=== PATIENT | male | born 1985 | race African-American/Black ===

== ENCOUNTER 2018-11-08 12:28 | Emergency (ER) | payer MEDICAID ==
[~2018-11-08] VITALS: Ht 175.3 cm; Wt 112.0 kg
[2018-11-08] MEDS: LIDOCAINE HCL 1% 20ML VIAL (Pyxis) INJ INFIL ONE (13:19)
[2018-11-08] MEDS: KETOROLAC 60MG/2ML VIAL IM ONE (13:19)
[2018-11-08] MEDS: CEFTRIAXONE SODIUM 1 G/VIAL IM ONE (13:19)
[2018-11-08 13:35] VITALS: BP 113/70
== END 2018-11-08 13:44 | disposition home or self-care (01) ==
LOC: ER 12:28
DX: K04.7 Periapical abscess without sinus (principal); L03.211 Cellulitis of face; F12.10 Cannabis abuse, uncomplicated; F17.290 Nicotine dependence, other tobacco product, uncomplicated; Z98.890 Other specified postprocedural states
CPT/HCPCS: 96372; 99283; 99406; J0696; J1885; J3490

== ENCOUNTER 2024-03-27 18:10 | Emergency (ER) | payer MEDICAID, OTHER ==
[~2024-03-27] VITALS: Ht 177.8 cm; Wt 125.0 kg
[2024-03-27 18:13] VITALS: O2SAT 100
[2024-03-27] MEDS: SODIUM CHLORIDE 0.9% 1,000 ML IV ONE (19:05)
[2024-03-27 20:10] VITALS: TEMP 36.94740
[2024-03-28 01:24] VITALS: BP 124/69; PULSE 98; RESP 16; O2SAT 94
== END 2024-03-28 01:24 | disposition home or self-care (01) ==
LOC: ER 18:10
DX: R73.9 Hyperglycemia, unspecified (principal); G40.909 Epilepsy, unspecified, not intractable, without status epilepticus
CPT/HCPCS: 99285; 70450; 71045; 93005; J7030

== ENCOUNTER 2024-05-11 21:34 | Emergency (ER) | payer MEDICAID ==
[~2024-05-11] VITALS: Ht 172.7 cm; Wt 93.0 kg
[2024-05-11 21:38] VITALS: O2SAT 99
[2024-05-12 02:58] VITALS: BP 130/80; PULSE 95; RESP 18; TEMP 36.7; O2SAT 99
== END 2024-05-12 03:00 | disposition home or self-care (01) ==
LOC: ER 21:34
DX: R56.9 Unspecified convulsions (principal); Z98.890 Other specified postprocedural states
CPT/HCPCS: 99283

== ENCOUNTER 2024-05-17 17:58 | Emergency (ER) | payer MEDICAID ==
[~2024-05-17] VITALS: Ht 182.9 cm; Wt 114.0 kg
[2024-05-17 18:09] VITALS: TEMP 38.4; O2SAT 100
[2024-05-17] MEDS ORDERED: ACETAMINOPHEN 325MG TABLET PO ONE (18:15)
[2024-05-17] MEDS ORDERED: IBUPROFEN 400MG TABLET PO ONE (18:15)
[2024-05-17 20:23] LABS: BASOPHILS % 0.7 % (0.0-2.0); EOSINOPHILS % 0.9 % (0.0-5.0); HEMATOCRIT. 39.5 % (42.0-52.0); HEMOGLOBIN. 13.3 g/dL (14.0-18.0); LYMPHOCYTES % 24.6 % (20.0-50.0); MEAN CORPUSCULAR HGB CONC 33.7 g/dL (31.0-37.0); MEAN CORPUSCULAR VOLUME 94.9 fL (80.0-94.0); MEAN PLATELET VOLUME 7.9 fl (7.4-10.4); MONOCYTES % 13.9 % (2.0-8.0); NEUTROPHILS % 59.9 % (40.0-76.0); PLATELET 303 x1000/uL (130-400); RED BLOOD CELL COUNT 4.16 mill/uL (4.7-6.1); WHITE BLOOD COUNT 5.2 x1000/uL (4.5-11.0)
[2024-05-17 20:32] LABS: PROTHROMBIN TIME 11.6 sec (9.6-11.0)
[2024-05-17 20:39] LABS: CHLORIDE 110 mEq/L (98-107); SODIUM 142 mEq/L (136-145)
[2024-05-17 20:40] LABS: CARBON DIOXIDE 28 mEq/L (21-32)
[2024-05-17 20:45] LABS: CREATININE 0.9 mg/dL (0.6-1.3); GLUCOSE 119 mg/dL (70-105); UREA NITROGEN BLOOD 11 mg/dL (9-23)
[2024-05-17 20:47] LABS: ALANINE AMINOTRANSFERASE 12 IU/L (10-49); ALBUMIN 3.2 g/dL (3.2-4.8); ASPARTATE AMINOTRANSFERASE 10 IU/L (<34); BILIRUBIN TOTAL 0.2 mg/dL (0.1-1.0); ETHANOL BLOOD < 10 mg/dL (<10); PROTEIN TOTAL 5.5 g/dL (6.0-8.3)
[2024-05-17 20:48] LABS: BILIRUBIN DIRECT < 0.1 mg/dL (<=3.0)
[2024-05-17] MEDS: PHENYTOIN SODIUM 1,000 MG in SODIUM CHLORIDE 0.9% 100 ML IV ONE (21:18)
[2024-05-17] MEDS: IBUPROFEN 400MG TABLET PO NR (21:26)
[2024-05-17] MEDS: ACETAMINOPHEN 325MG TABLET PO NR (21:27)
[2024-05-17 22:46] LABS: CLARITY URINE CLEAR (CLEAR); COLOR URINE YELLOW (YELLOW); GLUCOSE URINE NEGATIVE (NEGATIVE); KETONES URINE NEGATIVE (NEGATIVE); LEUKOCYTE ESTERASE URINE NEGATIVE (NEGATIVE); NITRITE URINE NEGATIVE (NEGATIVE); OCCULT BLOOD URINE NEGATIVE (NEGATIVE); PROTEIN URINE NEGATIVE (NEGATIVE); UROBILINOGEN URINE 0.2 E.U./dL (0.2-1.0)
[2024-05-17 22:56] LABS: *AMPHETAMINES SCREEN URINE NEGATIVE (NEGATIVE); *BARBITURATES SCREEN URINE NEGATIVE (NEGATIVE); *BENZODIAZEPINES SCREEN URINE NEGATIVE (NEGATIVE); *COCAINE SCREEN URINE PRESUMPTIVE POSITIVE (NEGATIVE); CANNABINOID URINE SCREEN NEGATIVE (NEGATIVE); METHADONE URINE SCREEN NEGATIVE (NEGATIVE); OPIATES URINE SCREEN NEGATIVE (NEGATIVE); PHENCYCLIDINE URINE SCREEN NEGATIVE (NEGATIVE)
[2024-05-17 22:57] LABS: ECSTASY MDMA SCREEN URINE NEGATIVE (NEGATIVE)
[2024-05-17] MEDS ORDERED: PHEN100C4 MT (23:03)
[2024-05-17] MEDS ORDERED: AZIT250T12 MT (23:06)
[2024-05-18 00:01] VITALS: BP 95/50; PULSE 98; RESP 18; O2SAT 94
== END 2024-05-18 01:18 | disposition home or self-care (01) ==
LOC: ER 17:58
DX: J06.9 Acute upper respiratory infection, unspecified (principal); G40.909 Epilepsy, unspecified, not intractable, without status epilepticus; F14.10 Cocaine abuse, uncomplicated; R53.1 Weakness; Z59.00 Homelessness unspecified
CPT/HCPCS: 80076; 80305; 80048; 81003; 80320; 83605; 85025; 85610; 87040; 87086; 36415; 84145; 71045; 70450; 96365; 99285; J1165; J7050; Z7610 ×2; A4606; G0480

== ENCOUNTER 2024-11-03 12:52 | Emergency (ER) | payer MEDICAID ==
[~2024-11-03] VITALS: Ht 177.8 cm; Wt 100.0 kg
[~2024-11-03 12:52] MED LIST: AZIT250T12 MT; PHEN100C4 MT
[2024-11-03 12:58] VITALS: O2SAT 98
[2024-11-03] MEDS ORDERED: SODIUM CHLORIDE 0.9% 1,000 ML IV ONE (13:00)
[2024-11-03] MEDS ORDERED: LEVETIRACETAM 1000MG PREMIX 100 ML IV ONE (13:00)
[2024-11-03 13:21] LABS: BASOPHILS % 0.7 % (0.0-2.0); EOSINOPHILS % 3.5 % (0.0-5.0); HEMATOCRIT. 39.7 % (42.0-52.0); HEMOGLOBIN. 13.3 g/dL (14.0-18.0); LYMPHOCYTES % 39.7 % (20.0-50.0); MEAN PLATELET VOLUME 7.7 fl (7.4-10.4); MONOCYTES % 11.6 % (2.0-8.0); NEUTROPHILS % 44.5 % (40.0-76.0); PLATELET 309 x1000/uL (130-400); RED BLOOD CELL COUNT 4.25 mill/uL (4.7-6.1); RED CELL DISTRIBUTION WIDTH 14.6 % (11.6-14.6)
[2024-11-03 13:50] LABS: CREATININE 0.9 mg/dL (0.6-1.3); ETHANOL BLOOD < 10 mg/dL (<10); UREA NITROGEN BLOOD 12 mg/dL (9-23)
[2024-11-03 14:24] LABS: PHENYTOIN < 2.0 ug/mL (10-20)
[2024-11-03] MEDS ORDERED: KEPP500 MT (17:09)
[2024-11-03] MEDS ORDERED: LEVETIRACETAM 500MG TABLET PO ONE (17:15)
[2024-11-03 17:22] VITALS: BP 128/85; PULSE 76; RESP 16; TEMP 36.8; O2SAT 99
== END 2024-11-03 17:29 | disposition home or self-care (01) ==
LOC: ER 12:52
DX: G40.909 Epilepsy, unspecified, not intractable, without status epilepticus (principal); Z79.899 Other long term (current) drug therapy
CPT/HCPCS: 80048; 80320; 80185; 85025; 36415; 93005; 99284; J7030; G0480

== ENCOUNTER 2024-12-20 21:33 | Emergency (ER) | payer MEDICAID ==
[~2024-12-20] VITALS: Ht 175.3 cm; Wt 96.0 kg
[~2024-12-20 21:33] MED LIST changes: +KEPP500 MT
[2024-12-20 21:35] VITALS: PULSE 89; RESP 18; O2SAT 98
[2024-12-20 21:37] VITALS: BP 127/74; TEMP 36.7; O2SAT 100
== END 2024-12-20 22:09 | disposition left against medical advice (07) ==
LOC: ER 21:33
DX: R06.02 Shortness of breath (principal); Z59.00 Homelessness unspecified; Z53.29 Procedure and treatment not carried out because of patient's decision for other reasons; Z79.899 Other long term (current) drug therapy
CPT/HCPCS: 71045; 93005; 99283

== ENCOUNTER 2024-12-20 23:09 | Emergency (ER) | payer MEDICAID ==
[~2024-12-20] VITALS: Ht 172.7 cm; Wt 90.0 kg
[2024-12-20 23:13] VITALS: BP 134/78; TEMP 36.7; O2SAT 98
[2024-12-20 23:24] VITALS: PULSE 70; RESP 18; O2SAT 99
[2024-12-20] MEDS ORDERED: IBUPROFEN 600MG TABLET PO ONE (23:30)
== END 2024-12-20 23:52 | disposition left against medical advice (07) ==
LOC: ER 23:09
DX: R07.2 Precordial pain (principal); Z59.00 Homelessness unspecified
CPT/HCPCS: 93005; 99283

== ENCOUNTER 2025-01-28 13:32 | Emergency (ER) | payer MEDICAID ==
[~2025-01-28] VITALS: Ht 172.7 cm; Wt 91.0 kg
[2025-01-28 13:36] VITALS: TEMP 36.6; O2SAT 99
[2025-01-28 16:25] VITALS: BP 111/78; PULSE 69; RESP 16; O2SAT 100
== END 2025-01-28 16:43 | disposition home or self-care (01) ==
LOC: ER 13:32
DX: S43.402A Unspecified sprain of left shoulder joint, initial encounter (principal); W10.9XXA Fall (on) (from) unspecified stairs and steps, initial encounter; Y93.89 Activity, other specified; Y92.89 Other specified places as the place of occurrence of the external cause; Y99.8 Other external cause status
CPT/HCPCS: 73030; 99284